=== PATIENT | female | born 1995 | race Caucasian/White ===

== ENCOUNTER 2021-02-21 14:33 | Outpatient (CLI) | payer OTHER, SELFPAY ==
[2021-02-21 17:33] LABS: SARS-CoV-2 Ag Negative (Negative)
== END 2021-02-21 14:34 | disposition home or self-care (01) ==
LOC: CHSLAB 14:39
PROVIDERS: PCP Family Medicine; Visit Provider Family Medicine
DX: Z20.822 Contact with and (suspected) exposure to COVID-19 (principal)
CPT/HCPCS: 87426; C9803

== ENCOUNTER 2021-03-06 15:54 | Outpatient (CLI) | payer OTHER, SELFPAY ==
[2021-03-07 19:52] LABS: SARS-CoV-2 RNA PCR Negative
== END 2021-03-06 15:55 | disposition home or self-care (01) ==
LOC: CHSLAB 15:59
PROVIDERS: PCP Family Medicine; Visit Provider Family Medicine
DX: Z20.822 Contact with and (suspected) exposure to COVID-19 (principal)
CPT/HCPCS: C9803; U0003; U0005

== ENCOUNTER 2024-10-20 03:47 | Emergency (ER) | payer OTHER, SELFPAY ==
[2024-10-20 03:48] VITALS: BP 140/91; PULSE 112; RESP 20; TEMP 36.2; O2SAT 98
--- NOTE | 2024-10-20 03:55 | ED.DENTAL ---
HPI - Dental/Oral General Chief complaint: Dental/Oral Stated complaint: tooth pain Source: patient and family Mode of arrival: ambulatory Limitations: no limitations History of Present Illness HPI Narrative: patient is a 29-year-old female with left upper jaw pain due to poor dentition. She has fractured teeth in the last 2 positions on the left upper molar region. MD Complaint: tooth pain Location: Tooth # ( Fifteen and 16) Onset (ago): day(s) ( 1) Duration: constant Severity: moderate Severity scale (1-10): 7 Relieving factors: prescription analgesics Exacerbating factors: chewing, cold, heat and drinking fluids Context: history of dental caries and poor dental care Associated symptoms: other ( none) Treatment prior to arrival: none Related Data Allergies Allergy/AdvReac Type Severity Reaction Status Date / Time Penicillins Allergy Unknown Unknown Verified 10/20/24 03:49 Review of Systems Review of Systems: All systems reviewed & are unremarkable except as noted in HPI and below Constitutional: Constitutional: Reports no additional constitutional complaints Eyes: Eyes: Reports no additional eye complaints ENT: Reports system reviewed and no additional complaints, except as documented Cardiovascular: Cardiovascular: Reports no additional cardiovascular complaints Respiratory: Respiratory: Reports no additional respiratory complaints Gastrointestinal: Gastrointestinal: Reports no additional gastrointestinal complaints Genitourinary: Genitourinary: Reports no additional female genitourinary complaints Musculoskeletal: Musculoskeletal: Reports no additional musculoskeletal complaints Integumentary/Breasts: Skin/Breast: Reports system reviewed and no additional complaints, except as docu Neurologic: Reports system reviewed and no additional complaints, except as documented Psychiatric: Psychiatric: Reports no additional psychiatric complaints Endocrine: Endocrine: Reports no additional endocrine complaints Hematologic/Lymphatic: Hematologic/Lymphatic: Reports no additional hematologic/lymphatic complaints Allergic/Immunologic: Allergic/Immunologic: Reports no additional allergic/immunologic complaints Exam Const: General: healthy appearing Nutritional Appearance: well nourished Orientation/consciousness: patient oriented x3 HENMT: Head: normal to inspection Ears: external ears normal Face/Nose/Sinus: Normal external nose present Other: general poor dentition and specifically tooth 15 and 16 have fractures and decay Eyes: Conjunctivae: conjunctivae normal Pupils: Equal, round and reactive pupils present EOM: EOMs intact bilaterally Neck: Neck: normal visual inspection Chest: Chest palpation & inspection: normal inspection of the chest Resp: Effort & Inspection: normal respiratory effort, not labored and no retractions Auscultation: clear to auscultation bilaterally, no crackles and no rales Cardio: Rate: regular rate Rhythm: regular rhythm Heart sounds: no murmurs GI: Inspection: distended GI Palp: Yes Soft to palpation and No Tenderness to palpation present (GI) Auscultation: normal bowel sounds : General: Yes bladder normal to palpation Back/Spine/Pelvis: Back: no CVA tenderness Skin: General skin exam: normal color Rashes: no rashes Wounds: no wounds Neuro: General: patient oriented x3 and moves all extremities Cranial nerves: Yes Nystagmus not present Speech: normal speech Gait exam (Neuro): Normal gait present Extrem: General: normal to inspection Psych: Mental Status: mental status grossly normal Affect: normal affect Attitude: cooperative Course Vital Signs Vital signs: Vital Signs Temperature 36.2 C L 10/20/24 03:48 Pulse Rate 112 H 10/20/24 03:48 Respiratory Rate 20 10/20/24 03:48 Blood Pressure 140/91 H 10/20/24 03:48 Pulse Oximetry 98 10/20/24 03:48 Oxygen Delivery Room Air 10/20/24 03:48 Temperature 36.2 C L 10/20/24 03:48 Pulse Rate 112 H 10/20/24 03:48 Respiratory Rate 20 10/20/24 03:48 Blood Pressure 140/91 H 10/20/24 03:48 Pulse Oximetry 98 10/20/24 03:48 Oxygen Delivery Room Air 10/20/24 03:48 MDM - Dental/Oral MDM Narrative Medical decision making narrative: patient is a 29-year-old female with left upper jaw pain. Clindamycin and Toradol. Ultram. Dentist. Discharge Plan Discharge Clinical Impression: Maxilla pain Patient Disposition: Home Condition: Stable Instructions: Antibiotic Form, Toothache (ED) Additional Instructions: please follow-up with primary doctor in the next week. Please see a dentist as soon as possible. Patient Language: Angolan Prescriptions: New clindamycin HCl [Cleocin HCl] 300 mg capsule 300 mg PO TID 10 Days Qty: 30 0RF tramadol 50 mg tablet 50 mg PO Q8H PRN (Reason: pain) Qty: 20 0RF Rx Instructions: 1-2 tabs per dose Follow-up/Referrals: Ana,MD Dennys [[place] Care Provider, [facility] Time of Disposition: 04:08
[2024-10-20] MEDS: CLINDAMYCIN HCL 150 MG CAP 300 MG PO (04:03)
[2024-10-20] MEDS: KETOROLAC (*BKC) 60 MG/2 ML VIAL IM (04:04)
[2024-10-20] MEDS: LIDOCAINE 2% VISC SOLN 15 ML UDC MUCOUS MEM (04:18)
[2024-10-20 04:23] VITALS: BP 130/84; PULSE 74; RESP 18; O2SAT 99
== END 2024-10-20 04:23 | disposition home or self-care (01) ==
PROVIDERS: Emergency Provider Emergency Medicine; PCP Family Medicine
DX: R68.84 Jaw pain (principal)
CPT/HCPCS: 96372; 99283; J1885

== ENCOUNTER 2025-01-10 10:52 | Emergency (ER) | payer OTHER, SELFPAY ==
[2025-01-10 10:52] VITALS: BP 127/80; PULSE 98; RESP 16; TEMP 36.6; O2SAT 99
--- OUTSIDE RECORDS SUMMARY | 2025-01-10 10:54 | XMS_ITS | Encounter Summary ---
Author Organization [facility] Address [address] [place] [address] Care Team Providers Care Retail Product Advisor Name Role Phone Handy Holliday MD Primary Care Provider [phone] Dennys Perez MD Primary Care Provider Encounter Details Date Type Department Care Team (Late st Contact Info) Description 07/26/2018 Abstract SFL CONVERSION [address] [place] [address] , Generic Conversion, Social History Tobacco Use Types Packs/Day Years Used Date Smoking Tobacco: Never Assessed Comments Unknown Sex and Gender Information Value Date Recorded Sex Assigned at Not on file 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 Gender Identity Not on file Sexual Orientation Not on file documented as of this encounter Plan of Treatment Not on file documented as of this encounter Visit Diagnoses Not on filedocumented in this encounter Additional Health Concerns Infection Onset Date Last Indicated Resolved Time COVID-19 Rule Out 08/09/2019 08/09/2019 08/11/2019 9:14 AM CDT COVID-19 Rule Out 11/06/2020 11/06/2020 11/06/2020 11:38 AM CDT COVID-19 Rule Out 12/27/2020 12/27/2020 12/27/2020 10:07 AM YARDAGE CALLER COVID-19 Rule Out 04/23/2021 04/23/2021 04/23/2021 7:48 AM YARDAGE CALLER COVID-19 Rule Out 05/05/2022 05/05/2022 05/05/2022 4:59 PM CDT documented as of this encounter Care Teams Retail Product Advisor Relationship Specialty Start Date End Date Handy Holliday MD [address] [place] [address] PCP - General FAMILY PRACTICE 09/25/18 12/01/19 Dennys Perez MD [address] [place] [phone] PCP - General FAMILY PRACTICE 12/02/19 documented as of this encounter
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
--- NOTE | 2025-01-10 11:04 | ED_ITS ---
HPI - Dental/Oral General Chief complaint: Dental/Oral Stated complaint: TOOTH ACHE, AND BACK PAIN Time Seen by Provider: 01/10/25 11:01 Source: patient Mode of arrival: ambulatory Limitations: no limitations History of Present Illness HPI Narrative: Patient is a 29-year-old female with 2 complaints today that consist of left upper jaw dental pain and lower back pain with some dysuria. No nausea vomiting or diarrhea. No fever or chills. Possible concern for STD with the dysuria. No vaginal discharges. She started treatment for dental pain a few weeks ago but only got 2 days of a dose and stopped. She was incarcerated at that time. MD Complaint: tooth pain Location: Tooth # (14 15 16) Onset (ago): week(s) (2) Duration: worsening Severity: moderate Severity scale (1-10): 6 Relieving factors: nothing Exacerbating factors: chewing, cold, heat and drinking fluids Context: history of dental caries and poor dental care Associated symptoms: gum swelling (Left cheek swelling) Treatment prior to arrival: other (Antibiotics for 2 days only a few weeks ago) Related Data Allergies Allergy/AdvReac Type Severity Reaction Status Date / Time Penicillins Allergy Unknown Unknown Verified 01/10/25 10:56 Review of Systems Review of Systems: All systems reviewed & are unremarkable except as noted in HPI and below Constitutional: Constitutional: Reports no additional constitutional complaints Eyes: Eyes: Reports no additional eye complaints ENT: Reports system reviewed and no additional complaints, except as documented Cardiovascular: Cardiovascular: Reports no additional cardiovascular complaints Respiratory: Respiratory: Reports no additional respiratory complaints Gastrointestinal: Gastrointestinal: Reports no additional gastrointestinal complaints Genitourinary: Genitourinary: Reports no additional female genitourinary complaints Musculoskeletal: Musculoskeletal: Reports no additional musculoskeletal complaints Integumentary/Breasts: Skin/Breast: Reports system reviewed and no additional complaints, except as docu Neurologic: Reports system reviewed and no additional complaints, except as documented Psychiatric: Psychiatric: Reports no additional psychiatric complaints Endocrine: Endocrine: Reports no additional endocrine complaints Hematologic/Lymphatic: Hematologic/Lymphatic: Reports no additional hematologic/lymphatic complaints Allergic/Immunologic: Allergic/Immunologic: Reports no additional allergic/immunologic complaints Exam Const: General: healthy appearing Nutritional Appearance: well nourished Orientation/consciousness: patient oriented x3 Limitations: no limitations HENMT: Head: normal to inspection Ears: external ears normal Face/Nose/Sinus: Normal external nose present Eyes: Conjunctivae: conjunctivae normal Pupils: Equal, round and reactive pupils present EOM: EOMs intact bilaterally Neck: Neck: normal visual inspection Chest: Chest palpation & inspection: normal inspection of the chest Resp: Effort & Inspection: normal respiratory effort and not labored Auscultation: clear to auscultation bilaterally and no crackles Cardio: Rate: regular rate Rhythm: regular rhythm Heart sounds: no murmurs GI: Inspection: non-distended GI Palp: Yes Soft to palpation, Yes Tenderness to palpation present (GI) (Diffuse), No Guarding due to palpation present (GI), No Rigid due to palpation, No Hernia present, No Palpable mass present and No Rebound tenderness present Auscultation: normal bowel sounds : General: Yes bladder normal to palpation Back/Spine/Pelvis: Back: no CVA tenderness Skin: General skin exam: normal color Rashes: no rashes Wounds: no wounds Neuro: General: patient oriented x3, moves all extremities and no meningeal signs Extrem: General: normal to inspection, no clubbing, cyanosis or edema and no pedal edema Psych: Mental Status: mental status grossly normal Affect: normal affect Attitude: cooperative Course Vital Signs Vital signs: Vital Signs Temperature 36.6 C 01/10/25 10:52 Pulse Rate 98 01/10/25 10:52 Respiratory Rate 16 01/10/25 10:52 Blood Pressure 127/80 01/10/25 10:52 Pulse Oximetry 99 01/10/25 10:52 Oxygen Delivery Room Air 01/10/25 10:52 Temperature 36.6 C 01/10/25 10:52 Pulse Rate 98 01/10/25 10:52 Respiratory Rate 16 01/10/25 10:52 Blood Pressure 127/80 01/10/25 10:52 Pulse Oximetry 99 01/10/25 10:52 Oxygen Delivery Room Air 01/10/25 10:52 MDM - Dental/Oral MDM Narrative Medical decision making narrative: Patient is a 29-year-old female with dental pain and lower back pain and dysuria. Toradol 60 IM. Await UA to use 1 antibiotic for both dental and urinary. Feed patient as she is basically homeless at this time. Gonorrhea and chlamydia off the urine and await results for treatment. UA. U preg. Lab Data Attestation: I reviewed the patient's lab results. Labs: Lab Results 01/10/25 Range/Units 11:22 Urine Color Light yellow (Yellow) Urine Appearance Cloudy A (Clear) Urine pH 8.0 (5.0-8.0) Ur Specific [place] 1.015 (1.010-1.020) Urine Protein Trace H (Negative) Urine Glucose (UA) Negative (Negative) Urine Ketones Trace H (Negative) Ur Blood (Man) Negative (Negative) Urine Nitrate Negative (Negative) Urine Bilirubin Negative (Negative) Urine Urobilinogen 1.0 (0.2-1.0) mg/dL Leukocyte Esterase Rfl 2+ H (Negative) MELISSA/UL Urine RBC 0-2 (0-2) /hpf Urine WBC 10-15 H (0-3) /hpf Ur Squamous Epith Cells Few (Few) /hpf Urine Bacteria Trace (None) /hpf Urine Test Negative C. trachomatis (PCR) Pending N. gonorrhoeae (PCR) Pending Discharge Plan Discharge Clinical Impression: Maxilla pain UTI (urinary tract infection) Qualifiers: Urinary tract infection type: acute cystitis Hematuria presence: without hematuria Qualified Code(s): N30.00 - Acute cystitis without hematuria Patient Disposition: Home Condition: Stable Instructions: Antibiotic Form, Urinary Tract Infection in Women (DC), Toothache (ED) Patient Language: Citizen Of [place] Prescriptions: New clindamycin HCl [Cleocin HCl] 300 mg capsule 300 mg PO TID 10 Days Qty: 30 0RF ciprofloxacin HCl [Cipro] 500 mg tablet 500 mg PO BID 7 Days Qty: 14 0RF tramadol 50 mg tablet 50 mg PO Q8H PRN (Reason: pain) Qty: 20 0RF Rx Instructions: 1-2 tabs per dose No Action clindamycin HCl [Cleocin HCl] 300 mg capsule 300 mg PO TID 10 Days Qty: 30 0RF tramadol 50 mg tablet 50 mg PO Q8H PRN (Reason: pain) Qty: 20 0RF Rx Instructions: 1-2 tabs per dose Follow-up/Referrals: Xavier,MD Dennys [Primary Care Provider, Family Practice] Time of Disposition: 11:46
[2025-01-10 11:27] LABS: Add Urine Microscopic? YES; Appearance Urine Cloudy (Clear); Glucose Urine UA Negative (Negative); Leukocyte Esterase Ur 2+ LEU/UL (Negative); Nitrate Urine Negative (Negative); Specific Grav Ur 1.015 (1.010-1.020)
[2025-01-10] MEDS: KETOROLAC (*BKC) 60 MG/2 ML VIAL IM (11:28)
--- OUTSIDE RECORDS SUMMARY | 2025-01-10 11:31 | XMS_ITS | Encounter Summary ---
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 [place] [phone] PCP - General FAMILY PRACTICE 09/25/18 12/01/19 Dennys Perez MD [address] [place] [phone] PCP - General FAMILY PRACTICE 12/02/19 documented as of this encounter
--- OUTSIDE RECORDS SUMMARY | 2025-01-10 11:31 | XMS_ITS | Clinical Summary ---
Author Organization [facility] Address [facility] [place] [address] Care Team Providers Care Professional Bondsman Name Role Phone Dennys Perez MD Primary Care Provider Allergies Active Allergy Reactions Criticality Noted Date [...] Living Expenses Not hard at all 06/27/2019 [facility] - Occupational Stress [...] on file Legal Sex Female 10:54 PM PLANT ATTENDANT OR ASSISTANT OPERATOR Gender Identity Not on file Sexual Orientation [...] 7:40 AM CDT Supervision of other normal ([facility]/HCC) CHLAMYDIA GC RNA Routine 04/20/2018 8:00 PM PLANT ATTENDANT OR ASSISTANT OPERATOR from Last 3 Months or Most Recently Relevant to Health Maintenance Results * Cytopath Cerv/Vag Thin Layer (10/31/2018 7:40 AM CDT) THIN PREP PAP [address] [phone] Department of Pathology Pathology Report CERVICAL/VAGINAL PAP SMEAR REPORT Name: NORMA OCAMPO Age: 1 1995 (Age: 23) Location: [facility] Sex: F Collected Date: 10/31/2018 [facility] #: [id number] Date Received: 11/04/2018 Date Reported: 11/05/2018 Provider: [...] is not effective in detecting cervical adenocarcinoma. [facility] 10/31/2018 7:40 AM CDT 11/04/2018 7:40 AM CDT Comment:CERVICAL/ENDOCERVICA L us Handy Holliday MD PATHOLOGY/CYTOLOGY ORDERABL ES Final Result [facility] [address] [place] [address], * CHLAMYDIA GC RNA (04/20/2018 8:00 PM PLANT ATTENDANT OR ASSISTANT OPERATOR) SPECIMEN SOURCE VAGINAL SPECIMEN 04/20/2018 9:31 PM PLANT ATTENDANT OR ASSISTANT OPERATOR [facility] CHLAMYDIA TRACHOMATIS RNA TMA NEGATIVE NEGATIVE 04/22/2018 4:32 PM PLANT ATTENDANT OR ASSISTANT OPERATOR [facility] Comment: A NEGATIVE RESULT DOES NOT PRECLUDE THE PRESENCE OF A CT INFECTION BECAUSE RESULTS ARE DEPENDENT ON ADEQUATE SPECIMEN COLLECTION, ABSENCE OF INHIBITORS, AND SUFFICIENT rRNA TO BE DETECTED. N.GONORRHOEAE RNA TMA (QST) NEGATIVE NEGATIVE 04/22/2018 4:32 PM PLANT ATTENDANT OR ASSISTANT OPERATOR [facility] Comment: A NEGATIVE RESULT DOES NOT PRECLUDE THE PRESENCE OF A GC INFECTION BECAUSE RESULTS ARE DEPENDENT ON ADEQUATE SPECIMEN COLLECTION, ABSENCE OF INHIBITORS, AND SUFFICIENT rRNA TO BE DETECTED. 04/20/2018 8:00 PM PLANT ATTENDANT OR ASSISTANT OPERATOR 04/20/2018 9:31 PM PLANT ATTENDANT OR ASSISTANT OPERATOR us Generic Conversion Md ROBINS MICROBIOLOGY - GENERAL ORDERABLES Final Result [facility] [address] [place] [address], [place] [phone] [facility] [address] [place] [address], [place] [phone] from Last 3 Months or Most Recently Relevant to Health Maintenance Insurance [employer] MEDICA[employer] Advance Directives * Full Code (Latest Code Status on File) Date Activated Date Inactivated Comments 06/27/2019 6:51 AM 06/28/2019 7:58 PM Care Teams Professional Bondsman Relationship Specialty Start Date End Date Dennys Perez MD [address] [place] [phone] PCP - General FAMILY PRACTICE 12/02/19
[2025-01-10 11:34] LABS: Pregnancy On Board Control Positive
[2025-01-10 11:57] VITALS: BP 119/75; PULSE 90; RESP 16; TEMP 36.6; O2SAT 99
--- NOTE | 2025-01-13 12:26 | PC.NURSE ---
FINAL URINE CULTURE REPORT; NO GROWTH, MIXED UROGENITAL BOLIVAR, NO FURTHER TREATMENT NEEDED PER ERP DR. BYRD
== END 2025-01-10 11:57 | disposition home or self-care (01) ==
PROVIDERS: Emergency Provider Emergency Medicine; PCP Family Medicine
DX: N30.00 Acute cystitis without hematuria (principal); R68.84 Jaw pain; Z23 Encounter for immunization; Z11.3 Encounter for screening for infections with a predominantly sexual mode of transmission
CPT/HCPCS: 81001; 81025; 87491; 87591; 90471; 99283; J1885

== ENCOUNTER 2025-02-08 14:44 | Emergency (ER) | payer OTHER, SELFPAY ==
[2025-02-08 14:47] VITALS: BP 123/89; PULSE 106; RESP 20; TEMP 37; O2SAT 100
--- NOTE | 2025-02-08 15:04 | ED.SKABFB ---
HPI - Skin/Abscess/Foreign Bdy General Chief complaint: Skin/Abscess/Foreign Body Stated complaint: Acne pain, UTI Time Seen by Provider: 02/08/25 14:52 Source: patient Mode of arrival: ambulatory Limitations: no limitations History of Present Illness HPI narrative: This is a 29-year-old female with no significant past medical history presents with some acne follicular lesions on her face and right axilla with no fever chills no nausea vomiting no abdominal pain no chest pain does have dysuria. MD complaint: rash Onset (ago): day(s) Location: face and RUE Severity: mild Severity scale (1-10): 4 Quality: aching Pain Consistency: constant Relieving factors: none Exacerbating factors: none Related Data Allergies Allergy/AdvReac Type Severity Reaction Status Date / Time Penicillins Allergy Unknown Unknown Verified 02/08/25 14:46 Review of Systems Review of Systems: All systems reviewed & are unremarkable except as noted in HPI and below Exam Const: General: healthy appearing and no acute distress Nutritional Appearance: well nourished Orientation/consciousness: patient oriented x3 Limitations: no limitations Neck: Neck: normal visual inspection and lymphadenopathy Chest: Chest palpation & inspection: normal inspection of the chest Resp: Effort & Inspection: normal respiratory effort Auscultation: clear to auscultation bilaterally Cardio: Rate: regular rate Rhythm: regular rhythm Skin: Other: Acne lesions on her face and a follicular lesion under the right axilla Course Course Emergency Course: Medical decision making narrative: The patient was evaluated by myself in the emergency department. History obtained from the patient who is an independent historian physical exam performed in witnessed by [facility]. Patient has follicular lesions/acne on her face and follicular lesion located under right axilla with dysuria patient received a dose of Motrin and a dose of Zithromax in the emergency department. UA performed and evaluated and reviewed with patient. Repeat assessment: Patient doing well on repeat exam with no acute distress Symptoms are stable since arrival to the emergency department repeat vitals are stable Patient agrees with discussion and after shared medical decision-making and agrees with discharge All questions answered to the patient's satisfaction Advised follow-up in the next 3 to 5 days with her primary care physician. Vital Signs Vital signs: Vital Signs Temperature 37.0 C 02/08/25 14:47 Pulse Rate 106 H 02/08/25 14:47 Respiratory Rate 20 02/08/25 14:47 Blood Pressure 123/89 02/08/25 14:47 Pulse Oximetry 100 02/08/25 14:47 Oxygen Delivery Room Air 02/08/25 14:47 Temperature 37.0 C 02/08/25 14:47 Pulse Rate 106 H 02/08/25 14:47 Respiratory Rate 20 02/08/25 14:47 Blood Pressure 123/89 02/08/25 14:47 Pulse Oximetry 100 02/08/25 14:47 Oxygen Delivery Room Air 02/08/25 14:47 MDM Differential Diagnosis Differential Diagnosis: Folliculitis Lab Data Labs: Lab Results 02/08/25 Range/Units 15:00 Urine Color Yellow (Yellow) Urine Appearance Clear (Clear) Urine pH 6.5 (5.0-8.0) Ur Specific [place] 1.025 H (1.010-1.020) Urine Protein Trace H (Negative) Urine Glucose (UA) Negative (Negative) Urine Ketones Negative (Negative) Ur Blood (Man) Negative (Negative) Urine Nitrate Negative (Negative) Urine Bilirubin Negative (Negative) Urine Urobilinogen 0.2 (0.2-1.0) mg/dL Leukocyte Esterase Rfl Negative (Negative) MELISSA/UL Urine Test Negative Critical Care Time Critical Care Time Critical Care Time: No Discharge Plan Discharge Clinical Impression: Folliculitis Patient Disposition: Home Condition: Stable Instructions: Antibiotic Form, Folliculitis (ED) Additional Instructions: Advised patient to follow with primary care physician and take medicine as prescribed. Patient Language: Botswanan Prescriptions: New doxycycline hyclate 150 mg tablet 150 mg PO Q12H Qty: 20 0RF naproxen 500 mg tablet 500 mg PO BID PRN (Reason: pain) Qty: 14 0RF Follow-up/Referrals: Chidi Willingham MD [Primary Care Provider, Internal Medicine] Time of Disposition: 15:10
[2025-02-08 15:05] LABS: Add Urine Microscopic? YES; Appearance Urine Clear (Clear); Glucose Urine UA Negative (Negative); Leukocyte Esterase Ur Negative LEU/UL (Negative); Nitrate Urine Negative (Negative); Specific Grav Ur 1.025 (1.010-1.020)
[2025-02-08] MEDS: IBUPROFEN 600 MG TABLET PO (15:09)
[2025-02-08] MEDS: AZITHROMYCIN 250 MG TABLET 500 MG PO (15:09)
[2025-02-08 15:13] LABS: Pregnancy On Board Control Positive
--- NOTE | 2025-02-08 15:30 | PC.NURSE ---
RN walks in to D/C pt. Pt is placing item from supply drawers in her bag. When pt is asked to open to bag and replace the items taken. Pt refuses. assistant maintenance manager made aware. ED charge sheet updated.
--- OUTSIDE RECORDS SUMMARY | 2025-02-08 16:32 | XMS_ITS | Clinical Summary ---
Author Organization [facility] Address Critical access hospital[address] [place] [address] Care Team Providers Care Tin Stacker Name Role Phone Dennys Perez MD Primary [...] Living Expenses Not hard at all 06/27/2019 [facility] Occupat ional Health - [...] on file Legal Sex Female 10:54 PM FINANCIAL SERVICE REPRESENTATIVE Gender Identity Not on file Sexual Orientation [...] 7:40 AM CDT Supervision of other normal ([facility]/HCC) CHLAMYDIA GC RNA Routine 04/20/2018 8:00 PM FINANCIAL SERVICE REPRESENTATIVE from Last 3 Months or Most Recently Relevant to Health Maintenance Results * Cytopath Cerv/Vag Thin Layer (10/31/2018 7:40 AM CDT) THIN PREP PAP [address] [phone] Department of Pathology Pathology Report CERVICAL/VAGINAL PAP SMEAR REPORT Name: NORMA OCAMPO Age: 1 1995 (Age: 23) Location: [facility] Sex: F Collected Date: 10/31/2018 [facility] #: [id number] Date Received: 11/04/2018 Date Reported: 11/05/2018 Provider: [...] is not effective in detecting cervical adenocarcinoma. [facility] 10/31/2018 7:40 AM CDT 11/04/2018 7:40 AM CDT Comment:CERVICAL/ENDOCERVICA L us Handy Holliday MD PATHOLOGY/CYTOLOGY ORDERABL ES Final Result [facility] [address] [place] [address], * CHLAMYDIA GC RNA (04/20/2018 8:00 PM FINANCIAL SERVICE REPRESENTATIVE) SPECIMEN SOURCE VAGINAL SPECIMEN 04/20/2018 9:31 PM FINANCIAL SERVICE REPRESENTATIVE [facility] CHLAMYDIA TRACHOMATIS RNA TMA NEGATIVE NEGATIVE 04/22/2018 4:32 PM FINANCIAL SERVICE REPRESENTATIVE [facility] Comment: A NEGATIVE RESULT DOES NOT PRECLUDE THE PRESENCE OF A CT INFECTION BECAUSE RESULTS ARE DEPENDENT ON ADEQUATE SPECIMEN COLLECTION, ABSENCE OF INHIBITORS, AND SUFFICIENT rRNA TO BE DETECTED. N.GONORRHOEAE RNA TMA (QST) NEGATIVE NEGATIVE 04/22/2018 4:32 PM FINANCIAL SERVICE REPRESENTATIVE [facility] Comment: A NEGATIVE RESULT DOES NOT PRECLUDE THE PRESENCE OF A GC INFECTION BECAUSE RESULTS ARE DEPENDENT ON ADEQUATE SPECIMEN COLLECTION, ABSENCE OF INHIBITORS, AND SUFFICIENT rRNA TO BE DETECTED. 04/20/2018 8:00 PM FINANCIAL SERVICE REPRESENTATIVE 04/20/2018 9:31 PM FINANCIAL SERVICE REPRESENTATIVE us Generic Conversion Md ROBINS MICROBIOLOGY - GENERAL ORDERABLES Final Result [facility] [address] [place] [address], [place] [phone] [facility] [address] [place] [address], [place] [phone] from Last 3 Months or Most Recently Relevant to Health Maintenance Insurance [facility] MEDICAID Advance Directives * Full Code (Latest Code Status on File) Date Activated Date Inactivated Comments 06/27/2019 6:51 AM 06/28/2019 7:58 PM Care Teams Tin Stacker Relationship Specialty Start Date End Date Dennys Perez MD [address] [place] [phone] PCP - General FAMILY PRACTICE 12/02/19
--- OUTSIDE RECORDS SUMMARY | 2025-02-08 16:32 | XMS_ITS | Encounter Summary ---
Author Organization [facility] Address [address] [place] [address] Care Team Providers Care Ceo Na Name Role Phone Handy Holliday MD Primary Care Provider Dennys Perez MD Primary Care Provider Encounter Details Date Type Department Care Team (Late st Contact Info) Description 07/26/2018 Abstract SFL CONVERSION [address] [place] [address] , Generic Conversion, Social History Tobacco Use Types Packs/Day Years Used Date Smoking Tobacco: Never Assessed Comments Unknown Sex and Gender Information Value Date Recorded Sex Assigned at Not on file Legal Sex Female 10:54 PM LOOPER FIXER Gender Identity Not on file Sexual Orientation [...] Rule Out 12/27/2020 12/27/2020 12/27/2020 10:07 AM LOOPER FIXER COVID-19 Rule Out 04/23/2021 04/23/2021 04/23/2021 7:48 AM LOOPER FIXER COVID-19 Rule Out 05/05/2022 05/05/2022 05/05/2022 4:59 PM CDT documented as of this encounter Care Teams Ceo Na Relationship Specialty Start Date End Date Handy Holliday MD [address] [place] [phone] PCP - General FAMILY PRACTICE 09/25/18 12/01/19 Dennys Perez MD [address] [place] [phone] PCP - General FAMILY PRACTICE 12/02/19 documented as of this encounter
--- OUTSIDE RECORDS SUMMARY | 2025-02-08 16:55 | XMS_ITS | Clinical Summary ---
Author Organization [facility] Address [address] [place] [address] Care Team Providers Care Home Lighting Adviser Name Role Phone Pcp, No Primary Care Provider [phone] Social History Tobacco Use Types Packs/Day Years Used Date Smoking Tobacco: Never Assessed Comments Unknown Sex and Gender Information Value Date Recorded Sex Assigned at Not on file Legal Sex Female 2:18 PM EDT Gender Identity Not on file Sexual Orientation Not on file Plan of Treatment Not on file Medical Devices Not on file Insurance [employer] [facility] [place] [address] Care Teams Home Lighting Adviser Relationship Specialty Start Date End Date PcpDilma PCP - General Family Medicine 10/26/20
--- OUTSIDE RECORDS SUMMARY | 2025-02-08 16:55 | XMS_ITS | Encounter Summary ---
Author Organization [facility] Address [address] [place] [address] Care Team Providers Care Stove Tender Name Role Phone Handy Holliday MD Primary Care Provider Dennys Perez MD Primary Care Provider Encounter Details Date Type Department Care Team (Late st Contact Info) Description 07/26/2018 Abstract SFL CONVERSION [address] [place] [address] , Generic Conversion, Social History Tobacco Use Types Packs/Day Years Used Date Smoking Tobacco: Never Assessed Comments Unknown Sex and Gender Information Value Date Recorded Sex Assigned at Not on file Legal Sex Female 10:54 PM SOLUTION SALES SENIOR EXECUTIVE Gender Identity Not on file Sexual Orientation [...] Rule Out 12/27/2020 12/27/2020 12/27/2020 10:07 AM SOLUTION SALES SENIOR EXECUTIVE COVID-19 Rule Out 04/23/2021 04/23/2021 04/23/2021 7:48 AM SOLUTION SALES SENIOR EXECUTIVE COVID-19 Rule Out 05/05/2022 05/05/2022 05/05/2022 4:59 PM CDT documented as of this encounter Care Teams Stove Tender Relationship Specialty Start Date End Date Handy Holliday MD [address] [place] [phone] PCP - General FAMILY PRACTICE 09/25/18 12/01/19 Dennys Perez MD [address] [place] [phone] PCP - General FAMILY PRACTICE 12/02/19 documented as of this encounter
--- OUTSIDE RECORDS SUMMARY | 2025-02-08 16:55 | XMS_ITS | Clinical Summary ---
Author Organization [facility] Address [facility] [place] [address] Care Team Providers Care Human Resources Officer Name Role Phone Dennys Perez MD Primary [...] Living Expenses Not hard at all 06/27/2019 [facility] of Occupat ional Health - Occupational [...] on file Legal Sex Female 10:54 PM MANAGEMENT EXPERT Gender Identity Not on file Sexual Orientation [...] 7:40 AM CDT Supervision of other normal ([facility]/HCC) CHLAMYDIA GC RNA Routine 04/20/2018 8:00 PM MANAGEMENT EXPERT from Last 3 Months or Most Recently Relevant to Health Maintenance Results * Cytopath Cerv/Vag Thin Layer (10/31/2018 7:40 AM CDT) THIN PREP PAP [address] [address] Department of Pathology Pathology Report CERVICAL/VAGINAL PAP SMEAR REPORT Name: NORMA OCAMPO Age: 1 1995 (Age: 23) Location: [facility] Sex: F Collected Date: 10/31/2018 [facility] #: [id number] Date Received: 11/04/2018 Date Reported: 11/05/2018 Provider: [...] is not effective in detecting cervical adenocarcinoma. [facility] 10/31/2018 7:40 AM CDT 11/04/2018 7:40 AM CDT Comment:CERVICAL/ENDOCERVICA L us Handy Holliday MD PATHOLOGY/CYTOLOGY ORDERABL ES Final Result [facility] [address] [place] [address], * CHLAMYDIA GC RNA (04/20/2018 8:00 PM MANAGEMENT EXPERT) SPECIMEN SOURCE VAGINAL SPECIMEN 04/20/2018 9:31 PM MANAGEMENT EXPERT [facility] CHLAMYDIA TRACHOMATIS RNA TMA NEGATIVE NEGATIVE 04/22/2018 4:32 PM MANAGEMENT EXPERT [facility] Comment: A NEGATIVE RESULT DOES NOT PRECLUDE THE PRESENCE OF A CT INFECTION BECAUSE RESULTS ARE DEPENDENT ON ADEQUATE SPECIMEN COLLECTION, ABSENCE OF INHIBITORS, AND SUFFICIENT rRNA TO BE DETECTED. N.GONORRHOEAE RNA TMA (QST) NEGATIVE NEGATIVE 04/22/2018 4:32 PM MANAGEMENT EXPERT [facility] Comment: A NEGATIVE RESULT DOES NOT PRECLUDE THE PRESENCE OF A GC INFECTION BECAUSE RESULTS ARE DEPENDENT ON ADEQUATE SPECIMEN COLLECTION, ABSENCE OF INHIBITORS, AND SUFFICIENT rRNA TO BE DETECTED. 04/20/2018 8:00 PM MANAGEMENT EXPERT 04/20/2018 9:31 PM MANAGEMENT EXPERT us Generic Conversion Md ROBINS MICROBIOLOGY - GENERAL ORDERABLES Final Result [facility] [address] [place] [address], [place] [phone] [facility] [address] [place] [address], [place] [phone] from Last 3 Months or Most Recently Relevant to Health Maintenance Insurance [facility] MEDICAID Advance Directives * Full Code (Latest Code Status on File) Date Activated Date Inactivated Comments 06/27/2019 6:51 AM 06/28/2019 7:58 PM Care Teams Human Resources Officer Relationship Specialty Start Date End Date Dennys Perez MD [address] [place] [phone] PCP - General FAMILY PRACTICE 12/02/19
== END 2025-02-08 15:40 | disposition home or self-care (01) ==
PROVIDERS: Emergency Provider Emergency Medicine; PCP Family Medicine
DX: L73.9 Follicular disorder, unspecified (principal)
CPT/HCPCS: 81001; 81025; 99283; A9270

== ENCOUNTER 2025-02-12 23:37 | Emergency (ER) | payer OTHER, SELFPAY ==
[2025-02-12 23:40] VITALS: BP 132/86; PULSE 130; RESP 18; TEMP 37.2; O2SAT 100
--- OUTSIDE RECORDS SUMMARY | 2025-02-12 23:52 | XMS_ITS | Clinical Summary ---
Author Organization [facility] Address [facility] [place] [address] Care Team Providers Care Clay Miner Name Role Phone Dennys Perez MD Primary [...] Living Expenses Not hard at all 06/27/2019 [facility] of Occupat ional Health - Occupational [...] on file Legal Sex Female 10:54 PM CONTACT CENTRE SUPERVISOR Gender Identity Not on file Sexual Orientation [...] 7:40 AM CDT Supervision of other normal ([facility]/HCC) CHLAMYDIA GC RNA Routine 04/20/2018 8:00 PM CONTACT CENTRE SUPERVISOR from Last 3 Months or Most Recently Relevant to Health Maintenance Results * Cytopath Cerv/Vag Thin Layer (10/31/2018 7:40 AM CDT) THIN PREP PAP [address] [address] Department of Pathology Pathology Report CERVICAL/VAGINAL PAP SMEAR REPORT Name: NORMA OCAMPO Age: 1 1995 (Age: 23) Location: [facility] Sex: F Collected Date: 10/31/2018 [facility] #: [id number] Date Received: 11/04/2018 Date Reported: 11/05/2018 Provider: [...] not effective in detecting cervical adenocarcinoma. [facility] 10/31/2018 7:40 AM CDT 11/04/2018 7:40 AM CDT Comment:CERVICAL/ENDOCERVICA L us Handy Holliday MD PATHOLOGY/CYTOLOGY ORDERABL ES Final Result [facility] [address] [place] [address], * CHLAMYDIA GC RNA (04/20/2018 8:00 PM CONTACT CENTRE SUPERVISOR) SPECIMEN SOURCE VAGINAL SPECIMEN 04/20/2018 9:31 PM CONTACT CENTRE SUPERVISOR [facility] CHLAMYDIA TRACHOMATIS RNA TMA NEGATIVE NEGATIVE 04/22/2018 4:32 PM CONTACT CENTRE SUPERVISOR [facility] Comment: A NEGATIVE RESULT DOES NOT PRECLUDE THE PRESENCE OF A CT INFECTION BECAUSE RESULTS ARE DEPENDENT ON ADEQUATE SPECIMEN COLLECTION, ABSENCE OF INHIBITORS, AND SUFFICIENT rRNA TO BE DETECTED. N.GONORRHOEAE RNA TMA (QST) NEGATIVE NEGATIVE 04/22/2018 4:32 PM CONTACT CENTRE SUPERVISOR [facility] Comment: A NEGATIVE RESULT DOES NOT PRECLUDE THE PRESENCE OF A GC INFECTION BECAUSE RESULTS ARE DEPENDENT ON ADEQUATE SPECIMEN COLLECTION, ABSENCE OF INHIBITORS, AND SUFFICIENT rRNA TO BE DETECTED. 04/20/2018 8:00 PM CONTACT CENTRE SUPERVISOR 04/20/2018 9:31 PM CONTACT CENTRE SUPERVISOR us Generic Conversion Md ROBINS MICROBIOLOGY - GENERAL ORDERABLES Final Result [facility] [address] [place] [address], [place] [phone] [facility] [address] [place] [address], [place] [phone] from Last 3 Months or Most Recently Relevant to Health Maintenance Insurance [facility] MEDICAID Advance Directives * Full Code (Latest Code Status on File) Date Activated Date Inactivated Comments 06/27/2019 6:51 AM 06/28/2019 7:58 PM Care Teams Clay Miner Relationship Specialty Start Date End Date Dennys Perez MD [address] [place] [phone] PCP - General FAMILY PRACTICE 12/02/19
--- OUTSIDE RECORDS SUMMARY | 2025-02-12 23:52 | XMS_ITS | Encounter Summary ---
Author Organization [facility] Address [address] [place] [address] Care Team Providers Care Plant Accountant Name Role Phone Handy Holliday MD Primary Care Provider Dennys Perez MD Primary Care Provider Encounter Details Date Type Department Care Team (Late st Contact Info) Description 07/26/2018 Abstract SFL CONVERSION [address] [place] [address] , Generic Conversion, Social History Tobacco Use Types Packs/Day Years Used Date Smoking Tobacco: Never Assessed Comments Unknown Sex and Gender Information Value Date Recorded Sex Assigned at Not on file Legal Sex Female 10:54 PM BENCHROOM SHOP OPTICIAN Gender Identity Not on file Sexual Orientation [...] Rule Out 12/27/2020 12/27/2020 12/27/2020 10:07 AM BENCHROOM SHOP OPTICIAN COVID-19 Rule Out 04/23/2021 04/23/2021 04/23/2021 7:48 AM BENCHROOM SHOP OPTICIAN COVID-19 Rule Out 05/05/2022 05/05/2022 05/05/2022 4:59 PM CDT documented as of this encounter Care Teams Plant Accountant Relationship Specialty Start Date End Date Handy Holliday MD [address] [place] [phone] PCP - General FAMILY PRACTICE 09/25/18 12/01/19 Dennys Perez MD [address] [place] [phone] PCP - General FAMILY PRACTICE 12/02/19 documented as of this encounter
[2025-02-13 00:15] VITALS: BP 108/55; PULSE 106
--- NOTE | 2025-02-13 00:20 | ED_ITS ---
HPI - Headache General Chief Complaint: Headache Stated Complaint: headache Source: patient Mode of arrival: ambulatory Limitations: no limitations History of Present Illness HPI Narrative: Patient is a 29-year-old female with recent use of ecstasy and now having a headache. She said sometimes if she gets bad ecstasy she gets a headache. She also used methamphetamine in the last 24 hours. MD elicited complaint: headache Pertinent past history: other (Illicit drug use) Onset (ago): day(s) (One) Onset description: gradually Location: right, left and temporal Severity: mild Pain scale (0-10): 4 Quality & Timing: throbbing and sharp Exacerbating factors: other (Possible recent ecstasy intake related headache or methamphetamine use) Relieving factors: dark room Context: occurred at rest Associated symptoms: none Treatments prior to arrival: none Related Data Allergies Allergy/AdvReac Type Severity Reaction Status Date / Time Penicillins Allergy Unknown Unknown Verified 02/13/25 00:21 Review of Systems Review of Systems: All systems reviewed & are unremarkable except as noted in HPI and below Constitutional: Constitutional: Reports no additional constitutional complaints Eyes: Eyes: Reports no additional eye complaints ENT: Reports system reviewed and no additional complaints, except as documented Cardiovascular: Cardiovascular: Reports no additional cardiovascular complaints Respiratory: Respiratory: Reports no additional respiratory complaints Gastrointestinal: Gastrointestinal: Reports no additional gastrointestinal complaints Genitourinary: Genitourinary: Reports no additional female genitourinary complaints Musculoskeletal: Musculoskeletal: Reports no additional musculoskeletal complaints Integumentary/Breasts: Skin/Breast: Reports system reviewed and no additional complaints, except as docu Neurologic: Reports system reviewed and no additional complaints, except as documented Psychiatric: Psychiatric: Reports no additional psychiatric complaints Endocrine: Endocrine: Reports no additional endocrine complaints Hematologic/Lymphatic: Hematologic/Lymphatic: Reports no additional hematologic/lymphatic complaints Allergic/Immunologic: Allergic/Immunologic: Reports no additional allergic/immunologic complaints Exam Const: General: healthy appearing Nutritional Appearance: well nourished Orientation/consciousness: patient oriented x3 HENMT: Head: normal to inspection Ears: external ears normal Face/Nose/Sinus: Normal external nose present Eyes: Conjunctivae: conjunctivae normal Pupils: Equal, round and reactive pupils present EOM: EOMs intact bilaterally Neck: Neck: normal visual inspection Chest: Chest palpation & inspection: normal inspection of the chest Resp: Effort & Inspection: normal respiratory effort and not labored Auscultation: clear to auscultation bilaterally and no crackles Cardio: Rate: regular rate Rhythm: regular rhythm Heart sounds: no murmurs GI: Inspection: non-distended GI Palp: Yes Soft to palpation and No Tenderness to palpation present (GI) Auscultation: normal bowel sounds : General: Yes bladder normal to palpation Back/Spine/Pelvis: Back: no CVA tenderness Skin: General skin exam: normal color Rashes: rash noted (Multiple facial skin lesions with appearance of methamphetamine use) Wounds: no wounds Neuro: General: patient oriented x3, moves all extremities, no meningeal signs and no focal motor deficits Other: Slightly intoxicated but able to make appropriate decisions and has decision- making capacity at this time; patient is not driving and she got a ride to the ER Extrem: General: normal to inspection, no clubbing, cyanosis or edema and no pedal edema Psych: Mental Status: mental status grossly normal Affect: normal affect Attitude: cooperative Course Vital Signs Vital signs: Vital Signs Temperature 37.2 C 02/12/25 23:40 Pulse Rate 130 H 02/12/25 23:40 Respiratory Rate 18 02/12/25 23:40 Blood Pressure 132/86 02/12/25 23:40 Pulse Oximetry 100 02/12/25 23:40 Oxygen Delivery Room Air 02/12/25 23:40 Temperature 37.2 C 02/12/25 23:40 Pulse Rate 130 H 02/12/25 23:40 Respiratory Rate 18 02/12/25 23:40 Blood Pressure 132/86 02/12/25 23:40 Pulse Oximetry 100 02/12/25 23:40 Oxygen Delivery Room Air 02/12/25 23:40 [facility] MDM Narrative Medical decision making narrative: Patient is a 29-year-old female illicit drug user here with a headache post ecstasy use and methamphetamine use. She has not done drugs in the last 8-10 hours. Toradol. Patient was given food. She was able to walk out on her own volition and answer all questions for discharge. Differential Diagnosis Differential Diagnosis: Migraine, tension headache, drug use related headache Discharge Plan Discharge Clinical Impression: Cephalgia Qualifiers: Headache type: unspecified Headache chronicity pattern: acute headache Intractability: not intractable Qualified Code(s): R51.9 - Headache, unspecified Patient Disposition: Home Condition: Stable Instructions: Acute Headache (ED) Patient Language: Estonian Prescriptions: No Action doxycycline hyclate 150 mg tablet 150 mg PO Q12H Qty: 20 0RF naproxen 500 mg tablet 500 mg PO BID PRN (Reason: pain) Qty: 14 0RF Follow-up/Referrals: Chidi Willingham MD [Primary Care Provider, Internal Medicine] Time of Disposition: 00:43
[2025-02-13] MEDS: KETOROLAC (*BKC) 60 MG/2 ML VIAL IM (00:34)
--- NOTE | 2025-02-13 00:57 | PC.NURSE ---
ERP aware of vitals. No new orders.
== END 2025-02-13 01:00 | disposition home or self-care (01) ==
PROVIDERS: Emergency Provider Emergency Medicine; PCP Family Medicine
DX: R51.9 Headache, unspecified (principal)
CPT/HCPCS: 96372; 99283; J1885